=== PATIENT | male | born 1975 | race African-American/Black ===

== ENCOUNTER → 2018-12-21 | Outpatient (CLI) | payer OTHER ==
--- NOTE | 2018-12-21 16:08 | EEG ---
DATE OF SERVICE: 12/21/2018 EEG NUMBER: [id number]. OBJECTIVE: This is a 43-year-old male patient with history of seizure. EEG was requested to evaluate seizure activity. METHODS: Twenty electrodes were applied according to the international 10-20 electrode placement system. EKG monitoring, hyperventilation, intermittent photic stimulation, monopolar and bipolar montages are routinely utilized. The record was obtained on a digital system with video monitoring. FINDINGS: 1. Background: The patient was recorded in the awake, drowsy and sleep states. The overall background amplitude is 10-25 microvolts. A posterior dominant rhythm of 6-7 Hz is observed. 2. Abnormalities: No specific epileptiform discharge or electrographic seizure is seen.. 3. Activation: Hyperventilation was performed with poor efforts. Intermittent photic stimulation was performed with photic driving. No specific epileptiform discharge or electrographic seizure induced by hyperventilation or intermittent photic stimulation. IMPRESSION: This EEG falls into the abnormal category of the study for the awake, drowsy and sleep states. The posterior dominant rhythm of 6-7 Hz is slow for age. No focal, lateralizing, specific epileptiform discharge or electrographic seizure is seen. AMADEO FUNES MD DR: FLORINDA/yenni JOB#: [id number] / [id number] BARB
== END | disposition home or self-care (01) ==
LOC: RT 08:18
PROVIDERS: ATTEND Psychiatry & Neurology Neurology
DX: G40.909 Epilepsy, unspecified, not intractable, without status epilepticus (principal)
CPT/HCPCS: 95816

== ENCOUNTER → 2019-01-07 | Outpatient (CLI) | payer OTHER ==
--- NOTE | 2019-01-11 13:22 | EEG ---
DATE OF SERVICE: 01/07/2019 EEG NUMBER: [id number] OBJECTIVE: This is a 43-year-old -Stateless male patient with history of seizure. He had increased seizure recently and EEG was requested to evaluate seizure activity. This is a long-term video EEG monitoring with total video monitoring and EEG recording time of 24 hours 15 minutes from 01/07/2019 to 01/08/2019. METHODS: Twenty electrodes were applied according to the international 10-20 electrode placement system. EKG monitoring, hyperventilation, intermittent photic stimulation, monopolar and bipolar montages are routinely utilized. The record was obtained on a digital system with video monitoring. MEDICATIONS: Zonegran. FINDINGS: 1. Background: The patient was recorded in the awake, drowsy, and sleep states. The overall background amplitude is 10-30 microvolts. A posterior dominant rhythm of 6-8 Hz is observed. 2. Abnormalities: No specific epileptiform discharge or electrographic seizure is seen. No focal or diffuse slowing. 3. Activation: Hyperventilation was performed with good efforts and normal response. Intermittent photic stimulation was performed with photic driving. No specific epileptiform discharge or electrographic seizure induced by hyperventilation or intermittent photic stimulation. IMPRESSION: This is a long-term video EEG study with total video monitoring and EEG recording time of 24 hours and 15 minutes from 01/07/2019 to 01/08/2019. This long-term video EEG study is a mildly abnormal study for the awake, drowsy, and sleep states. The posterior dominant rhythm of 6-8 Hz is mildly slow for age. No focal, lateralizing, specific epileptiform discharge, or electrographic seizure is seen. AMADEO FUNES MD DR: FLORINDA/yenni JOB#: [id number] / [id number] BARB
== END | disposition home or self-care (01) ==
LOC: SLPLAB 05:36
PROVIDERS: ATTEND Psychiatry & Neurology Neurology
DX: G40.909 Epilepsy, unspecified, not intractable, without status epilepticus (principal)
CPT/HCPCS: 95951

== ENCOUNTER 2019-08-31 08:22 | Observation (INO) | payer OTHER ==
[~2019-08-31] VITALS: Ht 193 cm; Wt 95.9 kg
--- NOTE | 2019-08-31 08:40 | PHYS DOC ---
Past Medical History Past Medical History: Seizure Alcohol Use: None Drug Use: None Adult General Chief Complaint Chief Complaint: SHORTNESS OF BREATH HPI HPI 43-year-old male with history of seizure disorder, presents to the emergency department complaint of shortness of breath, worsening wheezing over the last 4 days. Mother is at bedside states that he does not have a history of asthma however was diagnosed in April with asthma exacerbation and has been on inhalers however not consistently used. She describes a cough, some chest tightness, no tobacco history. Patient has any fever. Review systems no complaints of headache, visual change, nausea, vomiting or abdominal pain. Review of Systems Review of Systems Constitutional: Denies fever or chills [] HENT: Denies nasal congestion or sore throat [] Respiratory: Cough, shortness of breath Cardiovascular: No additional information not addressed in HPI [] GI: Denies abdominal pain, nausea, vomiting, bloody stools or diarrhea [] Musculoskeletal: Denies back pain or joint pain [] Integument: Insect bite to the left before meals with yellow crusty drainage Neurologic: Denies headache, focal weakness or sensory changes [] All other systems were reviewed and found to be within normal limits, except as documented in this note. Current Medications Current Medications Current Medications Medications (Trade) Dose Ordered Sig/Kimber Start Time Stop Time Status Last Admin Dose Admin Albuterol Sulfate (Ventolin Neb Soln) 2.5 mg STK-MED ONCE 08/31/19 09:03 08/31/19 09:04 DC Albuterol/ Ipratropium (Duoneb) 3 ml 1X ONCE 08/31/19 09:00 08/31/19 09:01 DC 08/31/19 08:54 3 ML Methylprednisolone Sodium Succinate (SOLU-Medrol 125MG VIAL) 125 mg 1X ONCE 08/31/19 09:00 08/31/19 09:01 DC 08/31/19 08:52 125 MG Allergies Allergies Allergies Coded Allergies Type Severity Reaction Last Updated Verified No Known Drug Allergies 08/31/19 No Physical Exam Physical Exam Constitutional: Well developed, well distressed 60 shortness of breath, nontoxic appearance HENT: Normocephalic, atraumatic, bilateral external ears normal, oropharynx moist, no oral exudates, nose normal. [] Eyes: PERRLA, EOMI, conjunctiva normal, no discharge. [] Cardiovascular:Heart rate regular rhythm, no murmur [] Lungs & Thorax: Bilateral expiratory wheeze, tachypnea, no use of accessory muscles Abdomen: Bowel sounds normal, soft, no tenderness, no masses, no pulsatile masses. [] Skin: Warm, dry, insect bite appreciated a left before meals Back: No tenderness, no CVA tenderness. [] Extremities: No tenderness, no cyanosis, no clubbing, ROM intact, no edema. [] Neurologic: Alert and oriented X 3, no focal deficits noted. [] Psychologic: Affect normal, judgement normal, mood normal. [] Current Patient Data Vital Signs Vital Signs Date Time Temp Pulse Resp B/P (MAP) Pulse Ox O2 Delivery O2 Flow Rate FiO2 08/31/19 09:09 94 Room Air 08/31/19 08:31 99.4 106 22 135/80 (98) 99.4 EKG EKG [] Radiology/Procedures Radiology/Procedures [facility] [address] [place] [address] IMAGING REPORT Signed PATIENT: BUCK LIVINGSTON ACCOUNT: [id number] : 1975 LOCATION: ER AGE: 43 SEX: M EXAM STATUS: REG ER ORD. PHYSICIAN: YI RICHARDS MD REASON: SOB/Wheeze PROCEDURE: CHEST AP ONLY CHEST AP ONLY History: Shortness of breath, wheezing Comparison: November 11, 2012 Findings: Single view of the chest is submitted. There is no infiltrate, pneumothorax, or effusion. The pericardial cardiac silhouette is within normal limits in size. Impression: 1. There is no radiographic evidence of acute cardiopulmonary disease. Electronically signed by: Veronica Clay MD (08/31/2019 8:51 AM) [facility] DICTATED and SIGNED BY: VERONICA CLAY MD DATE: 08/31/19 0851 [] Course & Med Decision Making Course & Med Decision Making Pertinent Labs and Imaging studies reviewed. (See chart for details) []43-year-old male with history of seizure disorder, presents to the emergency department complaint of shortness of breath, worsening wheezing over the last 4 days. Mother is at bedside states that he does not have a history of asthma however was diagnosed in April with asthma exacerbation and has been on inhalers however not consistently used. She describes a cough, some chest tightness, no tobacco history. Patient has any fever. Review systems no complaints of headache, visual change, nausea, vomiting or abdominal pain. Status post one DuoNeb, some improvement with wheezing, tachypnea did improve. 125 mg Solu-Medrol IV 1, plan for continuous hour-long neb treatment. Xray reviewed no evidence of acute cardiac pulmonary process Despite nebulizer treatment, DuoNeb, Solu-Medrol patient with continued wheeze. Saturations improved initially from 94-100% however upon ambulation patient desatted in the low 90s became tachypnea As well. Baseline laboratory values pending for admission, will discuss with hospitalist (KATI) Avelino Disclaimer Avelino Disclaimer This electronic medical record was generated, in whole or in part, using a voice recognition dictation system. Departure Departure Impression: Primary Impression: Asthma exacerbation Disposition: ADMITTED INPATIENT Admitting Physician: NARDA Condition: IMPROVED Referrals: UNKNOWN PCP NAME (PCP) Problem Qualifiers Primary Impression: Asthma exacerbation Asthma severity: moderate Asthma persistence: unspecified Qualified Codes : J45.901 - Unspecified asthma with (acute) exacerbation YI RICHARDS MD Aug 31, 2019 08:40
--- NOTE | 2019-08-31 08:54 | RAD ---
CHEST AP ONLY History: Shortness of breath, wheezing Comparison: November 11, 2012 Findings: Single view of the chest is submitted. There is no infiltrate, pneumothorax, or effusion. The pericardial cardiac silhouette is within normal limits in size. Impression: 1. There is no radiographic evidence of acute cardiopulmonary disease. Electronically signed by: Miguelangel Tsai MD (08/31/2019 8:51 AM) [facility]
[2019-08-31] MEDS ORDERED: IPRATRPIUM/ALBUTEROL 0.5/2.5MG 3 ML NEBU. NEB ONE (09:00)
[2019-08-31] MEDS ORDERED: methylPREDNISolone SOD SUCC PF 125 MG/2 ML VIAL. IV ONE (09:00)
[2019-08-31] MEDS ORDERED: ALBUTEROL SULFATE 2.5 MG/3 ML NEBU. ONE (09:03)
[2019-08-31] MEDS ORDERED: ALBUTEROL SULFATE 2.5 MG/3 ML NEBU. CONT NEB ONE (09:15)
--- NOTE | 2019-08-31 10:40 | PDOC1 ---
History and Physical Date of Admission Date of Admission DATE: 08/31/19 TIME: 10:39 Identification/Chief Complaint Chief Complaint seen in ER, TACHYPNIC ON ARRIVAL 43-year-old male with history of seizure disorder, presented to the emergency department complaint of shortness of breath, worsening wheezing over the last 4 days. Mother is at bedside states that he does not have a history of asthma however was diagnosed in April with asthma exacerbation and has been on inhalers She describes a cough, some chest tightness, no tobacco history. Patient has no fever. Review systems no complaints of headache, visual change, nausea, vomiting or abdominal pain. uncle smokes, mild smoke exposure in past Past Medical History Past Medical History Past Medical History Past Medical History: Seizure, asthma, development delay, hx av malformation left eye Alcohol Use: None Drug Use: None Remote appendectomy ho FHX ASTHMA CENTRAL NERVOUS SYSTEM: Seizure Infectious disease: No pertinent hx Past Surgical History Past Surgical History: Appendectomy Family History Family History: Other (no fhx asthma) Social History Smoke: No ALCOHOL: none Drugs: None Current Problem List Problem List Problems Medical Problems: (1) Asthma exacerbation Status: Acute Current Medications Current Medications Current Medications Albuterol/ Ipratropium (Duoneb) 3 ml 1X ONCE NEB Last administered on 08/31at 08:54; Start 08/31/19 at 09:00; Stop 08/31/19 at 09:01; Status DC Methylprednisolone Sodium Succinate (SOLU-Medrol 125MG VIAL) 125 mg 1X ONCE IV Last administered on 08/31/19at 08:52; Start 08/31/19 at 09:00; Stop 08/31/19 at 09:01; Status DC Albuterol Sulfate (Ventolin Neb Soln) 10 mg 1X ONCE CONT NEB Last administered on 08/31/19at 09:08; Start 08/31/19 at 09:15; Stop 08/31/19 at 09:16; Status DC Albuterol Sulfate (Ventolin Neb Soln) 2.5 mg STK-MED ONCE .ROUTE ; Start 08/31/19 at 09:03; Stop 08/31/19 at 09:04; Status DC Allergies Allergies: Coded Allergies: No Known Drug Allergies (Unverified , 08/31/19) ROS Review of System Review of Systems Review of Systems Constitutional: Denies fever or chills [] HENT: Denies nasal congestion or sore throat [] Respiratory: Cough, shortness of breath Cardiovascular: No additional information not addressed in HPI [] GI: Denies abdominal pain, nausea, vomiting, bloody stools or diarrhea [] Musculoskeletal: Denies back pain or joint pain [] Integument: Insect bite to the left before meals with yellow crusty drainage Neurologic: Denies headache, focal weakness or sensory changes [] 14 pt systems were reviewed and found to be within normal limits, except as documented ALLERGY AND IMMUNOLOGY: No: Hives, Insect Bite Sensitivity, Itchy/Watery Eyes, Nasal Congestion, Post Nasal Drip, Seasonal Allergies, Other Respiratory: YES: Shortness of breath Neurological: Yes Confusion Physical Exam Physical Exam Physical Exam Physical Exam Constitutional: Well developed, well dressed mod shortness of breath, nontoxic appearance HENT: Normocephalic, atraumatic, bilateral external ears normal, oropharynx moist, no oral exudates, nose normal. [] Eyes: PERRLA, EOMI, conjunctiva normal, no discharge. [] Cardiovascular:Heart rate regular rhythm, no murmur [] Lungs & Thorax: Bilateral expiratory wheeze, tachypnea, no use of accessory muscles Abdomen: Bowel sounds normal, soft, no tenderness, no masses, no pulsatile masses. [] Skin: Warm, dry, insect bite appreciated a left before meals Back: No tenderness, no CVA tenderness. [] Extremities: No tenderness, no cyanosis, no clubbing, ROM intact, no edema. [] Neurologic: Alert no focal deficits noted. [] Psychologic: Affect normal, mood normal. [] General: Alert, Cooperative HEENT: Atraumatic Lungs: Other (mod wheezing) Heart: RRR, no thrills Breasts: Not examined Abdomen: Normal bowel sounds, Soft Rectal Exam: not examined PELVIC: Examination not indicated Extremities: No cyanosis Neuro: Cranial nerves 3-12 NL Vitals Vitals Vital Signs Date Time Temp Pulse Resp B/P (MAP) Pulse Ox O2 Delivery O2 Flow Rate FiO2 08/31/19 10:33 110 20 125/74 (91) 96 Room Air 08/31/19 08:31 99.4 99.4 Images Images PROCEDURE: CHEST AP ONLY CHEST AP ONLY History: Shortness of breath, wheezing Comparison: November 11, 2012 Findings: Single view of the chest is submitted. There is no infiltrate, pneumothorax, or effusion. The pericardial cardiac silhouette is within normal limits in size. Impression: 1. There is no radiographic evidence of acute cardiopulmonary disease. Electronically signed by: Veronica Clay MD (08/31/2019 8:51 AM) [facility] DICTATED and SIGNED BY: VERONICA CLAY MD DATE: 08/31/19 0851 VTE Prophylaxis Ordered VTE Prophylaxis Devices: Yes VTE Pharmacological Prophylaxi: Yes Assessment/Plan Assessment/Plan Impression: acute asthmatic exacerbation with acute respiratory failure tachypnea tachycardia no radiographic evidence of acute cardiopulmonary disease. developmental delay second-hand smoke exposure by relative plan admit iv steroids, taper rapidly nebs qid o2 sUPPORT PRN singulair 10mg po qhs AVOID SECOND HAND SMOKE Needs new PCP Dvt prophylaxis 53 min pt exam, chart review> 50% of time spent with exam, chart review, pt care coordination OCTAVIO BRADEN MD Aug 31, 2019 10:40
[2019-08-31] MEDS ORDERED: ONDANSETRON PF 4 MG/2 ML VIAL. IV PRN ×2 (10:45→11:15)
[2019-08-31 11:13] LABS: BASO # 0.1 x10^3/uL (0.0-0.2); BASO % 0 % (0-3); EOS # 0.4 x10^3/uL (0.0-0.7); EOS % 3 % (0-3); HEMATOCRIT 44.4 % (39.0-53.0); HEMOGLOBIN 14.8 g/dL (13.0-17.5); LYMPH # 1.5 x10^3/uL (1.0-4.8); LYMPH % 11 % (24-48); MEAN CORPUSCULAR HEMOGLOBIN 32 pg (25-35); MEAN CORPUSCULAR HGB CONC 33 g/dL (31-37); MEAN CORPUSCULAR VOLUME 94 fL (79-100); MONO # 0.4 x10^3/uL (0.0-1.1); MONO % 3 % (0-9); NEUT # 10.7 x10^3/uL (1.8-7.7); NEUT % 82 % (31-73); PLATELET COUNT 171 x10^3/uL (140-400); RED BLOOD COUNT 4.71 x10^6/uL (4.30-5.70); RED CELL DISTRIBUTION WIDTH 12.5 % (11.5-14.5); WHITE BLOOD COUNT 13.1 x10^3/uL (4.0-11.0)
[2019-08-31] MEDS ORDERED: guaiFENesin ORAL 200 MG/10 ML LIQUID. PO PRN (11:15)
[2019-08-31] MEDS ORDERED: LORazepam 0.5 MG TABLET PO PRN (11:15)
[2019-08-31] MEDS ORDERED: cloNIDine HCL 0.1 MG TABLET PO PRN (11:15)
[2019-08-31] MEDS ORDERED: DOCUSATE SODIUM 100 MG CAPSULE. PO PRN (11:15)
[2019-08-31] MEDS ORDERED: ACETAMINOPHEN 325 MG TABLET. PO PRN (11:15)
[2019-08-31] MEDS ORDERED: 0.9 % SODIUM CHLORIDE 10 ML DISP.SYRIN. IV PRN (11:15)
[2019-08-31] MEDS ORDERED: ALBUTEROL SULFATE 2.5 MG/3 ML NEBU. NEB PRN (11:15)
[2019-08-31 11:22] LABS: CALCIUM 8.9 mg/dL (8.5-10.1); CREATININE 1.2 mg/dL (0.7-1.3); POTASSIUM 3.6 mmol/L (3.5-5.1)
[2019-08-31 11:29] LABS: ALBUMIN 4.3 g/dL (3.4-5.0); ALBUMIN/GLOBULIN RATIO 1.2 (1.0-1.7); TOTAL BILIRUBIN 0.1 mg/dL (0.2-1.0); TOTAL PROTEIN 7.8 g/dL (6.4-8.2)
[2019-08-31] MEDS ORDERED: methylPREDNISolone SOD SUCC PF 125 MG/2 ML VIAL. IV SCH (12:00)
[2019-08-31] MEDS: IPRATRPIUM/ALBUTEROL 0.5/2.5MG 3 ML NEBU. NEB SCH ×3 (12:07→19:48)
[2019-08-31] MEDS: IV NORMAL SALINE 1000ML BAG 1,000 ML IV SCH ×2 (13:12→21:52)
[2019-08-31] MEDS ORDERED: ZONI100C PO (13:21)
[2019-08-31] MEDS ORDERED: CARB400T3 PO (13:21)
--- NOTE | 2019-08-31 14:11 | PDOC ---
PULMONARY PROGRESS NOTES Vitals Vital Signs Date Time Temp Pulse Resp B/P (MAP) Pulse Ox O2 Delivery O2 Flow Rate FiO2 08/31/19 12:09 Room Air 08/31/19 10:33 110 20 125/74 (91) 96 08/31/19 08:31 99.4 99.4 Labs Laboratory Tests Test 08/31/19 10:32 White Blood Count 13.1 x10^3/uL (4.0-11.0) Red Blood Count 4.71 x10^6/uL (4.30-5.70) Hemoglobin 14.8 g/dL (13.0-17.5) Hematocrit 44.4 % (39.0-53.0) Mean Corpuscular Volume 94 fL (79-100) Mean Corpuscular Hemoglobin 32 pg (25-35) Mean Corpuscular Hemoglobin Concent 33 g/dL (31-37) Red Cell Distribution Width 12.5 % (11.5-14.5) Platelet Count 171 x10^3/uL (140-400) Neutrophils (%) (Auto) 82 % (31-73) Lymphocytes (%) (Auto) 11 % (24-48) Monocytes (%) (Auto) 3 % (0-9) Eosinophils (%) (Auto) 3 % (0-3) Basophils (%) (Auto) 0 % (0-3) Neutrophils # (Auto) 10.7 x10^3/uL (1.8-7.7) Lymphocytes # (Auto) 1.5 x10^3/uL (1.0-4.8) Monocytes # (Auto) 0.4 x10^3/uL (0.0-1.1) Eosinophils # (Auto) 0.4 x10^3/uL (0.0-0.7) Basophils # (Auto) 0.1 x10^3/uL (0.0-0.2) Sodium Level 147 mmol/L (136-145) Potassium Level 3.6 mmol/L (3.5-5.1) Chloride Level 111 mmol/L (98-107) Carbon Dioxide Level 25 mmol/L (21-32) Anion Gap 11 (6-14) Blood Urea Nitrogen 19 mg/dL (8-26) Creatinine 1.2 mg/dL (0.7-1.3) Estimated GFR (Cockcroft-Gault) 80.0 BUN/Creatinine Ratio 16 (6-20) Glucose Level 111 mg/dL (70-99) Calcium Level 8.9 mg/dL (8.5-10.1) Total Bilirubin 0.1 mg/dL (0.2-1.0) Aspartate Amino Transf (AST/SGOT) 11 U/L (15-37) Alanine Aminotransferase (ALT/SGPT) 14 U/L (16-63) Alkaline Phosphatase 68 U/L (46-116) Total Protein 7.8 g/dL (6.4-8.2) Albumin 4.3 g/dL (3.4-5.0) Albumin/Globulin Ratio 1.2 (1.0-1.7) Laboratory Tests Test 08/31/19 10:32 White Blood Count 13.1 x10^3/uL (4.0-11.0) Red Blood Count 4.71 x10^6/uL (4.30-5.70) Hemoglobin 14.8 g/dL (13.0-17.5) Hematocrit 44.4 % (39.0-53.0) Mean Corpuscular Volume 94 fL (79-100) Mean Corpuscular Hemoglobin 32 pg (25-35) Mean Corpuscular Hemoglobin Concent 33 g/dL (31-37) Red Cell Distribution Width 12.5 % (11.5-14.5) Platelet Count 171 x10^3/uL (140-400) Neutrophils (%) (Auto) 82 % (31-73) Lymphocytes (%) (Auto) 11 % (24-48) Monocytes (%) (Auto) 3 % (0-9) Eosinophils (%) (Auto) 3 % (0-3) Basophils (%) (Auto) 0 % (0-3) Neutrophils # (Auto) 10.7 x10^3/uL (1.8-7.7) Lymphocytes # (Auto) 1.5 x10^3/uL (1.0-4.8) Monocytes # (Auto) 0.4 x10^3/uL (0.0-1.1) Eosinophils # (Auto) 0.4 x10^3/uL (0.0-0.7) Basophils # (Auto) 0.1 x10^3/uL (0.0-0.2) Sodium Level 147 mmol/L (136-145) Potassium Level 3.6 mmol/L (3.5-5.1) Chloride Level 111 mmol/L (98-107) Carbon Dioxide Level 25 mmol/L (21-32) Anion Gap 11 (6-14) Blood Urea Nitrogen 19 mg/dL (8-26) Creatinine 1.2 mg/dL (0.7-1.3) Estimated GFR (Cockcroft-Gault) 80.0 BUN/Creatinine Ratio 16 (6-20) Glucose Level 111 mg/dL (70-99) Calcium Level 8.9 mg/dL (8.5-10.1) Total Bilirubin 0.1 mg/dL (0.2-1.0) Aspartate Amino Transf (AST/SGOT) 11 U/L (15-37) Alanine Aminotransferase (ALT/SGPT) 14 U/L (16-63) Alkaline Phosphatase 68 U/L (46-116) Total Protein 7.8 g/dL (6.4-8.2) Albumin 4.3 g/dL (3.4-5.0) Albumin/Globulin Ratio 1.2 (1.0-1.7) Medications Active Scripts Medications Dose Route/Sig Max Daily Dose Days Date Category Zonisamide 100 Mg Capsule 300 Mg PO BID 08/31/19 Reported Carbamazepine Er (Carbamazepine) 400 Mg Tab.er.12h 400 Mg PO BID 08/31/19 Reported Impression . dictated acute bronchitis asthma ARNOLDO SHARMA MD Aug 31, 2019 14:11
[2019-08-31 15:00] VITALS: BP 116/69
[2019-08-31] MEDS ORDERED: FLU VAX QS 2019-20 (36MOS+)/PF 0.5 ML SYRINGE. VAX IM ONE (15:00)
--- NOTE | 2019-08-31 15:42 | CONS ---
DATE OF CONSULTATION: 08/31/2019 ATTENDING PHYSICIAN: Dr. Castillo. CONSULTING PHYSICIAN: Dr. Arnoldo Sharma. REASON FOR CONSULTATION: The patient seen in pulmonary consultation at the request of Dr. Castillo for increasing shortness of air. HISTORY OF PRESENT ILLNESS: The patient is a 43-year-old with a history of seizure disorder, mental challenge who presents with wheezing over the last 4 days. The patient does not carry a diagnosis of asthma, but recently he was told that he had asthma. He smoked for a very short period of time. He has been using some inhalers, but not consistently. Presented with increasing shortness of breath, cough, mostly nonproductive. PAST MEDICAL HISTORY: Seizures, questionable adult-onset asthma. REVIEW OF SYSTEMS: As indicated above, otherwise, a 10-point system was reviewed and negative. CONSTITUTIONAL: No fever or chills. EYES: No change in visual acuity. HENT: No nasal congestion or sore throat. PULMONARY: As indicated above. CARDIOVASCULAR: No chest pain or pressure. GASTROINTESTINAL: No nausea, vomiting, or diarrhea. GENITOURINARY: No dysuria or frequency. MUSCULOSKELETAL: No localized muscle aches or joint pains. SKIN: No new skin rashes. NEUROLOGIC: No headaches, diplopia or blurred vision. CURRENT MEDICATION: List was reviewed. SOCIAL HISTORY: He is currently not smoking. FAMILY HISTORY: There is no family history of lung disorders. PHYSICAL EXAMINATION: VITAL SIGNS: Stable. O2 saturation was greater than 92% on room air. LUNGS: With bilateral wheezes. CARDIOVASCULAR: Regular rate and rhythm with S1, S2, no S3. ABDOMEN: Soft, nontender, nondistended. EXTREMITIES: No clubbing, cyanosis or edema. LABORATORY DATA: Reviewed. Chest x-ray was clear. IMPRESSION: 1. Acute bronchitis. 2. Possible adult-onset asthma. 3. History of seizures. PLAN: 1. Continue current medical regimen. 2. If continues to improve, may discharge home in the a.m. on Flovent 220 two puffs twice daily, p.r.n. albuterol. I do appreciate the privilege in sharing in the patient's care. ARNOLDO SHARMA MD DR: EDNA/yenni JOB#: [id number] / [id number]
[2019-08-31 19:00] VITALS: BP 123/70
[2019-08-31] MEDS ORDERED: MONTELUKAST SODIUM 10 MG TABLET. PO SCH (21:00)
[2019-08-31] MEDS: methylPREDNISolone SOD SUCC PF 125 MG/2 ML VIAL. IV SCH (21:48)
[2019-08-31 23:00] VITALS: BP 122/68
[2019-09-01 03:00] VITALS: BP 129/77
[2019-09-01 07:00] VITALS: BP 116/62
[2019-09-01 07:26] LABS: BASO % 0 % (0-3); EOS % 0 % (0-3); HEMATOCRIT 39.4 % (39.0-53.0); HEMOGLOBIN 13.4 g/dL (13.0-17.5); LYMPH # 1.5 x10^3/uL (1.0-4.8); LYMPH % 14 % (24-48); MEAN CORPUSCULAR HEMOGLOBIN 32 pg (25-35); MEAN CORPUSCULAR HGB CONC 34 g/dL (31-37); MEAN CORPUSCULAR VOLUME 93 fL (79-100); MONO # 0.6 x10^3/uL (0.0-1.1); MONO % 6 % (0-9); NEUT # 8.6 x10^3/uL (1.8-7.7); NEUT % 80 % (31-73); PLATELET COUNT 195 x10^3/uL (140-400); RED BLOOD COUNT 4.23 x10^6/uL (4.30-5.70); RED CELL DISTRIBUTION WIDTH 12.7 % (11.5-14.5); WHITE BLOOD COUNT 10.8 x10^3/uL (4.0-11.0)
[2019-09-01] MEDS: IPRATRPIUM/ALBUTEROL 0.5/2.5MG 3 ML NEBU. NEB SCH (07:41)
[2019-09-01 07:43] LABS: ALBUMIN 3.6 g/dL (3.4-5.0); ALBUMIN/GLOBULIN RATIO 1.1 (1.0-1.7); CALCIUM 8.4 mg/dL (8.5-10.1); CREATININE 1.1 mg/dL (0.7-1.3); GFR 88.4; POTASSIUM 4.2 mmol/L (3.5-5.1); TOTAL BILIRUBIN 0.2 mg/dL (0.2-1.0); TOTAL PROTEIN 6.8 g/dL (6.4-8.2)
[2019-09-01] MEDS: IV NORMAL SALINE 1000ML BAG 1,000 ML IV SCH (08:00)
[2019-09-01] MEDS: methylPREDNISolone SOD SUCC PF 125 MG/2 ML VIAL. IV SCH (08:26)
--- NOTE | 2019-09-01 08:42 | PDOC ---
PULMONARY PROGRESS NOTES Subjective resting comfortably on room air, remained on room air overnight Denies SOA or increased cough Vitals Vital Signs Date Time Temp Pulse Resp B/P (MAP) Pulse Ox O2 Delivery O2 Flow Rate FiO2 09/01/19 07:42 Room Air 09/01/19 03:00 98.7 93 18 129/77 (94) 96 98.7 ROS: No Nausea, No Chest Pain, No Abdominal Pain, No Increase Cough General: Alert, Oriented X4 Lungs: Clear Cardiovascular: S1, S2 Abdomen: Soft, Non-tender Neuro Exam: Alert, Oriented Extremities: No Edema Skin: Warm, Dry, No Rashes Impression CXR:08/31/19: Impression: There is no radiographic evidence of acute cardiopulmonary disease. Labs Laboratory Tests Test 08/31/19 10:32 09/01/19 07:02 White Blood Count 13.1 x10^3/uL (4.0-11.0) 10.8 x10^3/uL (4.0-11.0) Red Blood Count 4.71 x10^6/uL (4.30-5.70) 4.23 x10^6/uL (4.30-5.70) Hemoglobin 14.8 g/dL (13.0-17.5) 13.4 g/dL (13.0-17.5) Hematocrit 44.4 % (39.0-53.0) 39.4 % (39.0-53.0) Mean Corpuscular Volume 94 fL (79-100) 93 fL (79-100) Mean Corpuscular Hemoglobin 32 pg (25-35) 32 pg (25-35) Mean Corpuscular Hemoglobin Concent 33 g/dL (31-37) 34 g/dL (31-37) Red Cell Distribution Width 12.5 % (11.5-14.5) 12.7 % (11.5-14.5) Platelet Count 171 x10^3/uL (140-400) 195 x10^3/uL (140-400) Neutrophils (%) (Auto) 82 % (31-73) 80 % (31-73) Lymphocytes (%) (Auto) 11 % (24-48) 14 % (24-48) Monocytes (%) (Auto) 3 % (0-9) 6 % (0-9) Eosinophils (%) (Auto) 3 % (0-3) 0 % (0-3) Basophils (%) (Auto) 0 % (0-3) 0 % (0-3) Neutrophils # (Auto) 10.7 x10^3/uL (1.8-7.7) 8.6 x10^3/uL (1.8-7.7) Lymphocytes # (Auto) 1.5 x10^3/uL (1.0-4.8) 1.5 x10^3/uL (1.0-4.8) Monocytes # (Auto) 0.4 x10^3/uL (0.0-1.1) 0.6 x10^3/uL (0.0-1.1) Eosinophils # (Auto) 0.4 x10^3/uL (0.0-0.7) 0.0 x10^3/uL (0.0-0.7) Basophils # (Auto) 0.1 x10^3/uL (0.0-0.2) 0.0 x10^3/uL (0.0-0.2) Sodium Level 147 mmol/L (136-145) 142 mmol/L (136-145) Potassium Level 3.6 mmol/L (3.5-5.1) 4.2 mmol/L (3.5-5.1) Chloride Level 111 mmol/L (98-107) 110 mmol/L (98-107) Carbon Dioxide Level 25 mmol/L (21-32) 22 mmol/L (21-32) Anion Gap 11 (6-14) 10 (6-14) Blood Urea Nitrogen 19 mg/dL (8-26) 18 mg/dL (8-26) Creatinine 1.2 mg/dL (0.7-1.3) 1.1 mg/dL (0.7-1.3) Estimated GFR (Cockcroft-Gault) 80.0 88.4 BUN/Creatinine Ratio 16 (6-20) 16 (6-20) Glucose Level 111 mg/dL (70-99) 128 mg/dL (70-99) Calcium Level 8.9 mg/dL (8.5-10.1) 8.4 mg/dL (8.5-10.1) Total Bilirubin 0.1 mg/dL (0.2-1.0) 0.2 mg/dL (0.2-1.0) Aspartate Amino Transf (AST/SGOT) 11 U/L (15-37) 8 U/L (15-37) Alanine Aminotransferase (ALT/SGPT) 14 U/L (16-63) 15 U/L (16-63) Alkaline Phosphatase 68 U/L (46-116) 56 U/L (46-116) Total Protein 7.8 g/dL (6.4-8.2) 6.8 g/dL (6.4-8.2) Albumin 4.3 g/dL (3.4-5.0) 3.6 g/dL (3.4-5.0) Albumin/Globulin Ratio 1.2 (1.0-1.7) 1.1 (1.0-1.7) Laboratory Tests Test 08/31/19 10:32 09/01/19 07:02 White Blood Count 13.1 x10^3/uL (4.0-11.0) 10.8 x10^3/uL (4.0-11.0) Red Blood Count 4.71 x10^6/uL (4.30-5.70) 4.23 x10^6/uL (4.30-5.70) Hemoglobin 14.8 g/dL (13.0-17.5) 13.4 g/dL (13.0-17.5) Hematocrit 44.4 % (39.0-53.0) 39.4 % (39.0-53.0) Mean Corpuscular Volume 94 fL (79-100) 93 fL (79-100) Mean Corpuscular Hemoglobin 32 pg (25-35) 32 pg (25-35) Mean Corpuscular Hemoglobin Concent 33 g/dL (31-37) 34 g/dL (31-37) Red Cell Distribution Width 12.5 % (11.5-14.5) 12.7 % (11.5-14.5) Platelet Count 171 x10^3/uL (140-400) 195 x10^3/uL (140-400) Neutrophils (%) (Auto) 82 % (31-73) 80 % (31-73) Lymphocytes (%) (Auto) 11 % (24-48) 14 % (24-48) Monocytes (%) (Auto) 3 % (0-9) 6 % (0-9) Eosinophils (%) (Auto) 3 % (0-3) 0 % (0-3) Basophils (%) (Auto) 0 % (0-3) 0 % (0-3) Neutrophils # (Auto) 10.7 x10^3/uL (1.8-7.7) 8.6 x10^3/uL (1.8-7.7) Lymphocytes # (Auto) 1.5 x10^3/uL (1.0-4.8) 1.5 x10^3/uL (1.0-4.8) Monocytes # (Auto) 0.4 x10^3/uL (0.0-1.1) 0.6 x10^3/uL (0.0-1.1) Eosinophils # (Auto) 0.4 x10^3/uL (0.0-0.7) 0.0 x10^3/uL (0.0-0.7) Basophils # (Auto) 0.1 x10^3/uL (0.0-0.2) 0.0 x10^3/uL (0.0-0.2) Sodium Level 147 mmol/L (136-145) 142 mmol/L (136-145) Potassium Level 3.6 mmol/L (3.5-5.1) 4.2 mmol/L (3.5-5.1) Chloride Level 111 mmol/L (98-107) 110 mmol/L (98-107) Carbon Dioxide Level 25 mmol/L (21-32) 22 mmol/L (21-32) Anion Gap 11 (6-14) 10 (6-14) Blood Urea Nitrogen 19 mg/dL (8-26) 18 mg/dL (8-26) Creatinine 1.2 mg/dL (0.7-1.3) 1.1 mg/dL (0.7-1.3) Estimated GFR (Cockcroft-Gault) 80.0 88.4 BUN/Creatinine Ratio 16 (6-20) 16 (6-20) Glucose Level 111 mg/dL (70-99) 128 mg/dL (70-99) Calcium Level 8.9 mg/dL (8.5-10.1) 8.4 mg/dL (8.5-10.1) Total Bilirubin 0.1 mg/dL (0.2-1.0) 0.2 mg/dL (0.2-1.0) Aspartate Amino Transf (AST/SGOT) 11 U/L (15-37) 8 U/L (15-37) Alanine Aminotransferase (ALT/SGPT) 14 U/L (16-63) 15 U/L (16-63) Alkaline Phosphatase 68 U/L (46-116) 56 U/L (46-116) Total Protein 7.8 g/dL (6.4-8.2) 6.8 g/dL (6.4-8.2) Albumin 4.3 g/dL (3.4-5.0) 3.6 g/dL (3.4-5.0) Albumin/Globulin Ratio 1.2 (1.0-1.7) 1.1 (1.0-1.7) Medications Active Scripts Medications Dose Route/Sig Max Daily Dose Days Date Category Zonisamide 100 Mg Capsule 300 Mg PO BID 08/31/19 Reported Carbamazepine Er (Carbamazepine) 400 Mg Tab.er.12h 400 Mg PO BID 08/31/19 Reported Impression . 1. Acute bronchitis. 2. Possible adult-onset asthma. 3. History of seizures. Plan . 1. Steroid taper on D/C 2. Flovent 220 two puffs twice daily, p.r.n. albuterol. 3. Ok to D/C home from our standpoint Thank you ARNOLDO SHARMA MD Sep 01, 2019 08:42
[2019-09-01] MEDS ORDERED: FLUT12AE IH (08:53)
[2019-09-01] MEDS ORDERED: GUAI100L12 PO (08:53)
[2019-09-01] MEDS ORDERED: ALBU2.5V8 IH (08:53)
[2019-09-01] MEDS ORDERED: MONT10TA49 PO (08:53)
--- NOTE | 2019-09-01 08:55 | PDOC3 ---
Discharge Summary Visit Information Date of Admission: Aug 31, 2019 Date of Discharge: Sep 01, 2019 Admitting Diagnosis Comment: adult onset asthma Final Diagnosis Problems Medical Problems: (1) Asthma exacerbation Status: Acute Brief Hospital Course Allergies Allergies Coded Allergies Type Severity Reaction Last Updated Verified No Known Drug Allergies 08/31/19 No Vital Signs Vital Signs Date Time Temp Pulse Resp B/P (MAP) Pulse Ox O2 Delivery O2 Flow Rate FiO2 09/01/19 07:42 Room Air 09/01/19 03:00 98.7 93 18 129/77 (94) 96 98.7 Lab Results Laboratory Tests Test 08/31/19 10:32 09/01/19 07:02 White Blood Count 13.1 x10^3/uL (4.0-11.0) 10.8 x10^3/uL (4.0-11.0) Red Blood Count 4.71 x10^6/uL (4.30-5.70) 4.23 x10^6/uL (4.30-5.70) Hemoglobin 14.8 g/dL (13.0-17.5) 13.4 g/dL (13.0-17.5) Hematocrit 44.4 % (39.0-53.0) 39.4 % (39.0-53.0) Mean Corpuscular Volume 94 fL (79-100) 93 fL (79-100) Mean Corpuscular Hemoglobin 32 pg (25-35) 32 pg (25-35) Mean Corpuscular Hemoglobin Concent 33 g/dL (31-37) 34 g/dL (31-37) Red Cell Distribution Width 12.5 % (11.5-14.5) 12.7 % (11.5-14.5) Platelet Count 171 x10^3/uL (140-400) 195 x10^3/uL (140-400) Neutrophils (%) (Auto) 82 % (31-73) 80 % (31-73) Lymphocytes (%) (Auto) 11 % (24-48) 14 % (24-48) Monocytes (%) (Auto) 3 % (0-9) 6 % (0-9) Eosinophils (%) (Auto) 3 % (0-3) 0 % (0-3) Basophils (%) (Auto) 0 % (0-3) 0 % (0-3) Neutrophils # (Auto) 10.7 x10^3/uL (1.8-7.7) 8.6 x10^3/uL (1.8-7.7) Lymphocytes # (Auto) 1.5 x10^3/uL (1.0-4.8) 1.5 x10^3/uL (1.0-4.8) Monocytes # (Auto) 0.4 x10^3/uL (0.0-1.1) 0.6 x10^3/uL (0.0-1.1) Eosinophils # (Auto) 0.4 x10^3/uL (0.0-0.7) 0.0 x10^3/uL (0.0-0.7) Basophils # (Auto) 0.1 x10^3/uL (0.0-0.2) 0.0 x10^3/uL (0.0-0.2) Sodium Level 147 mmol/L (136-145) 142 mmol/L (136-145) Potassium Level 3.6 mmol/L (3.5-5.1) 4.2 mmol/L (3.5-5.1) Chloride Level 111 mmol/L (98-107) 110 mmol/L (98-107) Carbon Dioxide Level 25 mmol/L (21-32) 22 mmol/L (21-32) Anion Gap 11 (6-14) 10 (6-14) Blood Urea Nitrogen 19 mg/dL (8-26) 18 mg/dL (8-26) Creatinine 1.2 mg/dL (0.7-1.3) 1.1 mg/dL (0.7-1.3) Estimated GFR (Cockcroft-Gault) 80.0 88.4 BUN/Creatinine Ratio 16 (6-20) 16 (6-20) Glucose Level 111 mg/dL (70-99) 128 mg/dL (70-99) Calcium Level 8.9 mg/dL (8.5-10.1) 8.4 mg/dL (8.5-10.1) Total Bilirubin 0.1 mg/dL (0.2-1.0) 0.2 mg/dL (0.2-1.0) Aspartate Amino Transf (AST/SGOT) 11 U/L (15-37) 8 U/L (15-37) Alanine Aminotransferase (ALT/SGPT) 14 U/L (16-63) 15 U/L (16-63) Alkaline Phosphatase 68 U/L (46-116) 56 U/L (46-116) Total Protein 7.8 g/dL (6.4-8.2) 6.8 g/dL (6.4-8.2) Albumin 4.3 g/dL (3.4-5.0) 3.6 g/dL (3.4-5.0) Albumin/Globulin Ratio 1.2 (1.0-1.7) 1.1 (1.0-1.7) Laboratory Tests Test 08/31/19 10:32 09/01/19 07:02 White Blood Count 13.1 x10^3/uL (4.0-11.0) 10.8 x10^3/uL (4.0-11.0) Red Blood Count 4.71 x10^6/uL (4.30-5.70) 4.23 x10^6/uL (4.30-5.70) Hemoglobin 14.8 g/dL (13.0-17.5) 13.4 g/dL (13.0-17.5) Hematocrit 44.4 % (39.0-53.0) 39.4 % (39.0-53.0) Mean Corpuscular Volume 94 fL (79-100) 93 fL (79-100) Mean Corpuscular Hemoglobin 32 pg (25-35) 32 pg (25-35) Mean Corpuscular Hemoglobin Concent 33 g/dL (31-37) 34 g/dL (31-37) Red Cell Distribution Width 12.5 % (11.5-14.5) 12.7 % (11.5-14.5) Platelet Count 171 x10^3/uL (140-400) 195 x10^3/uL (140-400) Neutrophils (%) (Auto) 82 % (31-73) 80 % (31-73) Lymphocytes (%) (Auto) 11 % (24-48) 14 % (24-48) Monocytes (%) (Auto) 3 % (0-9) 6 % (0-9) Eosinophils (%) (Auto) 3 % (0-3) 0 % (0-3) Basophils (%) (Auto) 0 % (0-3) 0 % (0-3) Neutrophils # (Auto) 10.7 x10^3/uL (1.8-7.7) 8.6 x10^3/uL (1.8-7.7) Lymphocytes # (Auto) 1.5 x10^3/uL (1.0-4.8) 1.5 x10^3/uL (1.0-4.8) Monocytes # (Auto) 0.4 x10^3/uL (0.0-1.1) 0.6 x10^3/uL (0.0-1.1) Eosinophils # (Auto) 0.4 x10^3/uL (0.0-0.7) 0.0 x10^3/uL (0.0-0.7) Basophils # (Auto) 0.1 x10^3/uL (0.0-0.2) 0.0 x10^3/uL (0.0-0.2) Sodium Level 147 mmol/L (136-145) 142 mmol/L (136-145) Potassium Level 3.6 mmol/L (3.5-5.1) 4.2 mmol/L (3.5-5.1) Chloride Level 111 mmol/L (98-107) 110 mmol/L (98-107) Carbon Dioxide Level 25 mmol/L (21-32) 22 mmol/L (21-32) Anion Gap 11 (6-14) 10 (6-14) Blood Urea Nitrogen 19 mg/dL (8-26) 18 mg/dL (8-26) Creatinine 1.2 mg/dL (0.7-1.3) 1.1 mg/dL (0.7-1.3) Estimated GFR (Cockcroft-Gault) 80.0 88.4 BUN/Creatinine Ratio 16 (6-20) 16 (6-20) Glucose Level 111 mg/dL (70-99) 128 mg/dL (70-99) Calcium Level 8.9 mg/dL (8.5-10.1) 8.4 mg/dL (8.5-10.1) Total Bilirubin 0.1 mg/dL (0.2-1.0) 0.2 mg/dL (0.2-1.0) Aspartate Amino Transf (AST/SGOT) 11 U/L (15-37) 8 U/L (15-37) Alanine Aminotransferase (ALT/SGPT) 14 U/L (16-63) 15 U/L (16-63) Alkaline Phosphatase 68 U/L (46-116) 56 U/L (46-116) Total Protein 7.8 g/dL (6.4-8.2) 6.8 g/dL (6.4-8.2) Albumin 4.3 g/dL (3.4-5.0) 3.6 g/dL (3.4-5.0) Albumin/Globulin Ratio 1.2 (1.0-1.7) 1.1 (1.0-1.7) Brief Hospital Course Mr. Marino is a 43 old non smoker, only hx is sz on AEDs, comes in for cough and soa and co managed with pulmo, dc adult onset asthma, CXR clear, HOme today, flovent and pred taper and singulair and pro air prn with OTC cough med, NO PT needs dc< 30 consults: pulmo Proc none Discharge Information Condition at Discharge: Improved, Stable Follow Up: Weeks (pcp 4 weeks) Disposition/Orders: D/C to Home Scheduled Carbamazepine (Carbamazepine Er) 400 Mg Tab.er.12h, 400 MG PO BID for seizure, (Reported) Entered as Reported by: TEDDY HARO on 08/31/191320 Last Taken: Unknown Dose on 08/31/19 Last Action: New Order on 08/31/191320 by TEDDY HARO Fluticasone Propionate (Flovent 110MCG Hfa) 12 Gm Aer.w.adap, 2 PUFF IH BID for adult onset asthma for 30 Days, #1 Ref 2 Prescribed by: LINDA HERNANDEZ on 09/01/19 0853 Montelukast Sodium (Montelukast Sodium Tablet ) 10 Mg Tablet, 10 MG PO HS for FOR ASTHMA for 30 Days, #30 Ref 0 Prescribed by: LINDA HERNANDEZ on 09/01/19 0853 Zonisamide (Zonisamide) 100 Mg Capsule, 300 MG PO BID for seizure, (Reported) Entered as Reported by: TEDDY HARO on 08/31/191320 Last Taken: Unknown Dose on 08/31/19 Last Action: New Order on 08/31/191320 by TEDDY HARO Scheduled PRN Albuterol Sulfate (Proair Hfa Inhaler) 8.5 Gm Hfa.aer.ad, 2 PUFF IH PRN Q4-6HRS PRN for wheezing for 21 Days, #1 Ref 0 Prescribed by: LINDA HERNANDEZ on 09/01/19 0853 Guaifenesin (Guaifenesin) 100 Mg/5 Ml Liquid, 200 MG PO PRN Q4HRS PRN for COUGH for 7 Days Prescribed by: LINDA HERNANDEZ on 09/01/19 0853 LINDA HERNANDEZ MD Sep 01, 2019 08:55
[2019-09-01] MEDS ORDERED: ENOXAPARIN 40 MG/0.4 ML SYRINGE. SQ SCH (09:00)
--- NOTE | 2019-09-01 12:04 | NUR ---
Discharge Note: [facility] [address] [place] [address] Discharge instructions and discharge home medications reviewed with Parent and a copy given. All questions have been answered and understanding verbalized. The following instructions and handouts were given: Diet, activity, medication list and follow up instructions provided to patient and patient's mother, Aubrie who is primary caregiver for patient. Discontinued lines and drains: Peripheral IV discontinued and catheter intact. Patient discharged to Home or Self Care with Parent via Ambulated
--- NOTE | 2019-09-01 12:05 | NUR ---
EVS notified of patient discharge and that patient had bed bugs on admission. Linens left in place for EVS inspection per protocol.
== END 2019-09-01 11:35 | disposition home or self-care (01) ==
LOC: ER 08:22 → 4 NORTH 10:42
PROVIDERS: ADMIT Family Medicine; ATTEND Family Medicine
DX: J45.901 Unspecified asthma with (acute) exacerbation (principal); J96.00 Acute respiratory failure, unspecified whether with hypoxia or hypercapnia; R00.0 Tachycardia, unspecified; R62.50 Unspecified lack of expected normal physiological development in childhood; Z77.22 Contact with and (suspected) exposure to environmental tobacco smoke (acute) (chronic); Z23 Encounter for immunization
CPT/HCPCS: 36415; 71045; 80053; 85025; 90471; 90686; 94640; 94644; 94760; 96374; 96376; 99284; G0378; J2930; J7030; J7613; J7620; G0379

== ENCOUNTER → 2019-12-02 | Outpatient (CLI) | payer OTHER ==
[~2019-12-02] MED LIST: ALBU2.5V8 IH; CARB400T3 PO; FLUT12AE IH; GUAI100L12 PO; MONT10TA49 PO; ZONI100C26 PO
--- NOTE | 2019-12-03 18:47 | EEG ---
DATE OF SERVICE: 12/02/2019 EEG NUMBER: [id number]. OBJECTIVE: This is a 44-year-old -[place] male patient with history of seizure and intellectual disability. EEG was requested to evaluate seizure activity. METHODS: Twenty electrodes were applied according to the international 10-20 electrode placement system. EKG monitoring, hyperventilation, intermittent photic stimulation, monopolar and bipolar montages are routinely utilized. The record was obtained on a digital system with video monitoring. MEDICATIONS: Zonegran and Keppra. FINDINGS: 1. Background: The patient was recorded in the awake, drowsy, and sleep states. The overall background amplitude is 10-25 microvolts. A posterior dominant rhythm of 7-8 Hz is observed. 2. Abnormalities: No specific epileptiform discharge or electrographic seizure is seen. No focal or diffuse slowing. 3. Activation: Hyperventilation was performed with good efforts and normal response. Intermittent photic stimulation was performed with photic driving. No specific epileptiform discharge or electrographic seizure induced by hyperventilation or intermittent photic stimulation. IMPRESSION: This EEG is a mildly abnormal study for the awake, drowsy, and sleep states. The posterior dominant rhythm of 7-8 Hz is mildly slow for age. No focal, lateralizing, specific epileptiform discharge or electrographic seizure is seen. AMADEO FUNES MD DR: FLORINDA/yenni JOB#: [id number] / [id number] BARB
== END | disposition home or self-care (01) ==
LOC: RT 07:58
PROVIDERS: ATTEND Psychiatry & Neurology Neurology
DX: R56.9 Unspecified convulsions (principal)
CPT/HCPCS: 95816